=== PATIENT | female | born 1965 | race American Indian/Alaskan Native ===

== ENCOUNTER 2017-01-13 09:14 | Outpatient (CLI) | payer OTHER ==
--- NOTE | 2017-01-13 11:24 | Ultrasound Report ---
ULTRASOUND THYROID SCAN: HISTORY: Neck mass. FINDINGS: The thyroid gland is normal size and echotexture. The right lobe measures 4.8 x 1.8 x 1.9 cm. The left lobe measures 4.2 x 1.7 x 1.7 cm. The isthmus measures 6 mm in thickness. A solitary hypoechoic nodule measuring 8 mm is noted in the superior left thyroid lobe which is unchanged since 07/15/09. No new thyroid cyst or mass. IMPRESSION: No change in the solitary 8 mm hypoechoic nodule in the left thyroid lobe. Overall, this has the appearance of a benign nodule.
== END 2017-01-13 09:15 | disposition home or self-care (01) ==
LOC: US 09:14
PROVIDERS: ATTEND Internal Medicine
DX: R94.6 Abnormal results of thyroid function studies (principal)
CPT/HCPCS: 76536